=== PATIENT | female | born 1975 ===

== ENCOUNTER 2017-04-25 13:34 | Emergency (ER) | payer OTHER ==
[2017-04-25 13:51] VITALS: RESP 16
[2017-04-25 14:20] LABS: SQUAMOUS EPITHIAL 1 /hpf (0-5); URINE BILIRUBIN NEGATIVE (NEGATIVE); URINE BLOOD 2+ (NEGATIVE); URINE CLARITY Clear (Clear); URINE COLOR Straw (YELLOW); URINE GLUCOSE (UA) NORMAL (Normal); URINE LEUKOCYTE ESTERASE NEG Leu/uL (Negative); URINE NITRATE NEGATIVE (NEGATIVE); URINE PROTEIN NEGATIVE (NEGATIVE); URINE UROBILINOGEN NORMAL mg/dL (0.2-1.0)
[2017-04-25 14:23] LABS: HCG,QUALITATIVE URINE POSITIVE (NEGATIVE)
[2017-04-25 14:27] LABS: BASO # 0.1 K/uL (0.0-0.2); EOS # 0.2 K/uL (0.0-0.7); EOS % 2.4 % (0.0-4.0); LYMPH # 2.2 K/uL (1.0-4.3); LYMPH % 26.4 % (20.0-40.0); MEAN CELL VOLUME 86.8 fL (81.0-99.0); MEAN CORPUSCULAR HGB CONC 34.5 g/dL (33.0-37.0); MEAN PLATELET VOLUME 8.5 fL (7.2-11.7); MONO # 0.5 K/uL (0.0-0.8); MONO % 5.8 % (0.0-10.0); NEUT # 5.3 K/uL (1.8-7.0); NEUT % 64.4 % (50.0-75.0); RBC 4.68 Mil/uL (3.80-5.20); RED CELL DISTRIBUTION WIDTH 13.3 % (11.5-14.5); WHITE BLOOD COUNT 8.3 K/uL (4.8-10.8)
[2017-04-25 14:39] LABS: ALBUMIN 4.1 g/dL (3.5-5.0); ALT/SGPT 31 U/L (9-52); AST/SGOT 22 U/L (14-36); BLOOD UREA NITROGEN 8 mg/dL (7-17); CALCIUM 8.7 mg/dl (8.6-10.4); GFR AFRICAN-AMERICAN > 60; GFR NON-AFRICAN AMERICAN > 60; LIPASE 35 U/L (23-300)
--- NOTE | 2017-04-25 15:39 | US ---
PROCEDURE: OB Pelvic Ultrasound HISTORY: vaginal bleeding COMPARISON: None available. TECHNIQUE: Transabdominal and endovaginal ultrasound examination of the pelvis was performed. FINDINGS: UTERUS: Gestational sac: Single intrauterine gestation. Heart rate: 0 bpm. age (Ultrasound estimated): 5 weeks 5 days 0 weeks 3 days Sera-gestational hemorrhage: None. Date of delivery (Ultrasound estimated) : 12/21/2017 Measures 8.6 x 4.1 x 6.5 cm. Normal in size and appearance. No fibroid or other mass lesion seen. CERVIX: Long and closed. No cervical abnormality seen. RIGHT OVARY: Measures 2.1 x 1.6 x 2 cm. No mass lesion. Normal flow. LEFT OVARY: Measures 2.5 x 1.7 x 2.6 cm. No solid mass. Normal flow. FREE FLUID: None. OTHER FINDINGS: None. IMPRESSION: Abnormal shape of the gestational sac contains low-level echoes. Abnormal shape of the pole. No heart activity appreciated. Cystic structure noted in the gestational sac may root represent enlarged yolk sac versus pathologic cyst measures 0.4 centimeter. The possibility of demise should be considered. Correlation with beta HCG level is suggested.
--- NOTE | 2017-04-25 16:22 | C.PDOC ---
History Of Present Illness 41 y/o female [id number] presents to the ED c/o vaginal bleeding since yesterday. The patient states" There is blood on the tissue but no aentte vaginal bleeding." The patient has no previous ultrasound and LNMP: 02-19-17 The patient denies nausea, vomiting, fever, and cough. Time Seen by Provider: 04/25/17 13:55 Chief Complaint (Nursing): Abdominal Pain History Per: Patient Onset/Duration Of Symptoms: Days Current Symptoms Are (Timing): Still Present Quality Of Discomfort: denies: Cramping Associated Symptoms: denies: Fever, Nausea, Vomiting Past Medical History Reviewed: Historical Data, Nursing Documentation, Vital Signs Vital Signs: Last Vital Signs Temp 98.6 F 04/25/17 16:39 Pulse 69 04/25/17 16:39 Resp 16 04/25/17 16:39 BP 118/79 04/25/17 16:39 Pulse Ox 99 04/25/17 16:39 Surgical History: No Surg Hx Family History: States: No Known Family Hx - Social History Hx Alcohol Use: No Hx Substance Use: No - Immunization History Hx Tetanus Toxoid Vaccination: No Hx Influenza Vaccination: No Hx Pneumococcal Vaccination: No Review Of Systems Except As Marked, All Systems Reviewed And Found Negative. Constitutional: Negative for: Fever Respiratory: Negative for: Cough, Shortness of Breath Gastrointestinal: Negative for: Nausea, Vomiting Physical Exam - Physical Exam Appears: Non-toxic, No Acute Distress Skin: Warm, Dry Head: Atraumatic, Normacephalic Eye(s): bilateral: Normal Inspection Oral Mucosa: Moist Neck: Supple Chest: Symmetrical Cardiovascular: Rhythm Regular Respiratory: Normal Breath Sounds, No Rales, No Rhonchi, No Wheezing Gastrointestinal/Abdominal: Soft, No Tenderness, No Guarding, No Rebound Back: Normal Inspection Pelvic: No Vaginal Bleeding, No Vaginal Discharge Extremity: No Tenderness, Capillary Refill (2<sec.), No Swelling Neurological/Psych: Oriented x3, Normal Speech, Normal Cognition ED Course And Treatment - Laboratory Results Result Diagrams: 04/25/17 14:16 04/25/17 14:16 O2 Sat by Pulse Oximetry: 100 (RA) Progress Note: US Exam is unremarkable. The patient is aferbile. The patient is advised to have a follow up with her PMD for further evaluation. Medical Decision Making Medical Decision Making: IMPRESSION: Abnormal shape of the gestational sac contains low-level echoes. Abnormal shape of the pole. No heart activity appreciated. Cystic structure noted in the gestational sac may root represent enlarged yolk sac versus pathologic cyst measures 0.4 centimeter. The possibility of demise should be considered. Correlation with beta HCG level is suggested. Disposition - Disposition Referrals: [facility]io [facility], [Non-Staff] - Disposition: HOME/ ROUTINE Disposition Time: 15:55 Condition: GOOD Additional Instructions: Thank you for letting us take care of you today. The emergency medical care you received today was directed at your acute symptoms. If you were prescribed any medication, please fill it and take as directed. It may take several days for your symptoms to resolve. Return to the Emergency Department if your symptoms worsen, do not improve, or if you have any other problems. Please contact your doctor or call one of the physicians/clinics you have been referred to that are listed on the Patient Visit Information form that is included in your discharge packet. Bring any paperwork you were given at discharge with you along with any medications you are taking to your follow up visit. Our treatment cannot replace ongoing medical care by a primary care provider (PCP) outside of the emergency department. Thank you for allowing the [facility] team to be part of your care today. Follow up with the emergency room in 2 days for repeat bloodwork and ultrasound. Lulú por dejarnos atenderlo hoy. La atencin mdica de emergencia que recibi hoy estaba dirigida a elaine sntomas agudos. Si le prescribieron algn medicamento, llnelo y tome segn las indicaciones. Elaine sntomas pueden tardar varios grajeda en resolverse. Regrese al Departamento de Emergencia si elaine s ntomas empeoran, no mejoran o si tiene algn otro problema. Comunquese con danielson mdico o llame a yash de los mdicos / clnicas a los que duran sido referido que figura en el formulario de Informacin de visita del paciente que se incluye en danielson paquete de emily. Traiga todos los documentos que recibi al momento del emily junto con los medicamentos que est tomando en danielson visita de seguimiento. Nuestro tratamiento no puede reemplazar la atencin mdica en curso por parte de un proveedor de atencin primaria (PCP) fuera del departamento de emergencias. Lulú por permitir que el equipo de [facility] sea parte de danielson cuidado hoy. River un seguimiento con la xiang de emergencias en 2 grajeda para que se repitan los anlisis de soham y el ultrasonido. Instructions: Threatened Miscarriage (ED), Pelvic Rest (ED) Forms: Gen Discharge Inst Nepali Print Language: THAI - Clinical Impression Clinical Impression: Threatened - Scribe Statement The provider has reviewed the documentation as recorded by the Scribe Obdulia Pettit
[2017-04-25 16:41] VITALS: BP 118/79; PULSE 69; TEMP 98.6
[2017-04-25 18:33] VITALS: O2SAT 100
== END 2017-04-25 16:40 | disposition home or self-care (01) ==
LOC: C.ER 13:34
DX: O20.0 Threatened abortion (principal)

== ENCOUNTER 2017-04-26 05:27 | Emergency (ER) | payer OTHER ==
[2017-04-26 06:47] VITALS: BP 122/76; PULSE 88; RESP 20; TEMP 97.6; O2SAT 100
[2017-04-26] MEDS ORDERED: Oxycodone/Acetaminophen 5/325 mg Tab PO STA (08:03)
[2017-04-26] MEDS ORDERED: Oxycodone/Acetaminophen 5/325 mg Tab ONE (08:07)
--- NOTE | 2017-04-26 08:26 | C.PDOC ---
History Of Present Illness 41-year-old female, presents to the emergency department with complaints of vaginal bleeding for the past two days, that is associated with abdominal cramping. Patient was seen in ED yesterday for similar symptoms, and was evaluated for threatened . Patient returns today for continued bleeding. Denies chest pain, shortness of breath, nausea/vomiting, fevers or chills. No other complaints at this time. Time Seen by Provider: 04/26/17 07:31 Chief Complaint (Nursing): Female Genitourinary History Per: Patient History/Exam Limitations: no limitations Onset/Duration Of Symptoms: Days Current Symptoms Are (Timing): Still Present Severity: Moderate Past Medical History Reviewed: Historical Data, Nursing Documentation, Vital Signs Vital Signs: Last Vital Signs Temp 97.6 F 04/26/17 06:43 Pulse 88 04/26/17 06:43 Resp 20 04/26/17 06:43 BP 122/76 04/26/17 06:43 Pulse Ox 100 04/26/17 15:12 Family History: States: No Known Family Hx - Social History Hx Alcohol Use: No Hx Substance Use: No - Immunization History Hx Tetanus Toxoid Vaccination: No Hx Influenza Vaccination: No Hx Pneumococcal Vaccination: No Review Of Systems Except As Marked, All Systems Reviewed And Found Negative. Constitutional: Negative for: Fever, Chills Cardiovascular: Negative for: Chest Pain Respiratory: Negative for: Shortness of Breath Gastrointestinal: Negative for: Vomiting Genitourinary: Positive for: Vaginal Bleeding, Pelvic Pain Musculoskeletal: Negative for: Back Pain Neurological: Negative for: Weakness, Numbness, Headache, Dizziness Physical Exam - Physical Exam Appears: Non-toxic, No Acute Distress Skin: Warm, Dry, No Rash Head: Atraumatic, Normacephalic Eye(s): bilateral: Normal Inspection, PERRL Nose: Normal Oral Mucosa: Moist Lips: Normal Appearing Neck: Normal ROM Cardiovascular: Rhythm Regular, No Murmur Respiratory: Normal Breath Sounds, No Accessory Muscle Use Gastrointestinal/Abdominal: Soft, No Tenderness Extremity: Normal ROM Neurological/Psych: Oriented x3, Normal Speech ED Course And Treatment O2 Sat by Pulse Oximetry: 100 (on RA) Pulse Ox Interpretation: Normal Medical Decision Making Medical Decision Making: Old records were reviewed. Patient seen in ED yesterday for same complaint. Pt had an ultrasound that revealed no heartbeat, patient was instructed to follow up in ER in two days. Plan: * Percocet * Reassess and Disposition Disposition - Disposition Referrals: [facility] [Outside] Disposition: HOME/ ROUTINE Disposition Time: 08:23 Condition: GOOD Additional Instructions: RETURN IN 24 HOURS FOR REPEAT TESTING. Prescriptions: oxyCODONE/Acetaminophen [Percocet 5/325 mg Tab] 1 tab PO QID PRN #15 tab PRN Reason: Pain Instructions: Threatened Miscarriage (ED) Forms: [employer] (Welsh) - Clinical Impression Clinical Impression: Threatened - Scribe Statement The provider has reviewed the documentation as recorded by the Scribe (Shayan Steinberg) All medical record entries made by the Scribe were at my direction and personally dictated by me. I have reviewed the chart and agree that the record accurately reflects my personal performance of the history, physical exam, medical decision making, and the department course for this patient. I have also personally directed, reviewed, and agree with the discharge instructions and disposition.
== END 2017-04-26 08:41 | disposition home or self-care (01) ==
LOC: C.ER 05:27
DX: O20.0 Threatened abortion (principal); Z3A.00 Weeks of gestation of pregnancy not specified

== ENCOUNTER 2017-04-27 08:27 | Emergency (ER) | payer OTHER ==
[2017-04-27 08:42] VITALS: O2SAT 100
--- NOTE | 2017-04-27 10:18 | C.PDOC ---
History Of Present Illness 41-year-old female, presents to the emergency department with complaints of vaginal bleeding for the past three days that is associated with abdominal cramping. Patient was seen in ED yesterday and two days ago for similar symptoms , and was evaluated for threatened . Patient was asked to return today for repeat beta count. Denies chest pain, shortness of breath, nausea/vomiting, fevers or chills. No other complaints at this time. Time Seen by Provider: 04/27/17 08:35 Chief Complaint (Nursing): Female Genitourinary History Per: Patient History/Exam Limitations: no limitations Onset/Duration Of Symptoms: Days Current Symptoms Are (Timing): Still Present Past Medical History Reviewed: Historical Data, Nursing Documentation, Vital Signs Vital Signs: Last Vital Signs Temp 97.7 F 04/27/17 14:11 Pulse 63 04/27/17 14:11 Resp 20 04/27/17 14:11 BP 105/73 04/27/17 14:11 Pulse Ox 100 04/30/17 12:42 Family History: States: No Known Family Hx - Social History Hx Alcohol Use: No Hx Substance Use: No - Immunization History Hx Tetanus Toxoid Vaccination: No Hx Influenza Vaccination: No Hx Pneumococcal Vaccination: No Review Of Systems Except As Marked, All Systems Reviewed And Found Negative. Constitutional: Negative for: Fever Cardiovascular: Negative for: Chest Pain Respiratory: Negative for: Shortness of Breath Gastrointestinal: Positive for: Abdominal Pain. Negative for: Nausea, Vomiting Genitourinary: Positive for: Vaginal Bleeding Neurological: Negative for: Weakness, Numbness, Headache, Dizziness Physical Exam - Physical Exam Appears: Non-toxic, No Acute Distress Skin: Warm, Dry, No Rash Head: Atraumatic, Normacephalic Eye(s): bilateral: Normal Inspection, PERRL, EOMI Ear(s): Bilateral: Normal Nose: Normal Oral Mucosa: Moist Lips: Normal Appearing Throat: No Erythema, No Exudate Neck: Normal ROM, Supple Chest: Symmetrical, No Ecchymosis, No Subcutaneous Emphysema Cardiovascular: Rhythm Regular, No Friction Rub, No Murmur Respiratory: Normal Breath Sounds, No Accessory Muscle Use Gastrointestinal/Abdominal: Bowel Sounds (active), Soft, No Tenderness Back: No CVA Tenderness Pelvic: Normal External Exam, Vaginal Bleeding, No Cervical Motion Tenderness, No Adnexal Tenderness, Other (Cervical os opened) Extremity: Normal ROM, No Tenderness, No Pedal Edema, No Swelling Neurological/Psych: Oriented x3, Normal Speech, Normal Motor Gait: Steady ED Course And Treatment O2 Sat by Pulse Oximetry: 100 (on RA) Pulse Ox Interpretation: Normal Medical Decision Making Medical Decision Making: Prior Visits Old records were reviewed. Patient seen in ED on 04/25 for same complaint. Pt had an ultrasound that revealed no heartbeat, patient was instructed to follow up in ER in two days. Patient returned to ED yesterday for evaluation of continued bleeding. Patients HCG on 04/25 was [address]49. Plan: * US Transvaginal * Beta HCG * Reassess and Disposition Patients repeat beta is 1576. Pending ultrasound. Findings show an in progress. The case [facility] who states that she has reviewed the ultrasound images, states to give the patient Cytotec 400mg TID for 2 days, and agrees that the patient is safe for discharge. Disposition - Disposition Referrals: [facility] at [facility] [Outside] Disposition: HOME/ ROUTINE Disposition Time: 13:31 Condition: GOOD Additional Instructions: Follow up with the medical doctor within 1-2 days. Return if worsened. Prescriptions: Ibuprofen [Motrin Tab] 800 mg PO TID #20 tab miSOPROStol [Cytotec] 400 mcg PO TID #5 tab Promethazine [Phenergan] 25 mg PO Q6 PRN #15 tab PRN Reason: Nausea/Vomiting Instructions: Spontaneous Miscarriage (ED) Forms: [employer] (Emirati) Print Language: SWEDISH - Clinical Impression Clinical Impression: Spontaneous - Scribe Statement The provider has reviewed the documentation as recorded by the Scribe (Shayan Steinberg) All medical record entries made by the Scribe were at my direction and personally dictated by me. I have reviewed the chart and agree that the record accurately reflects my personal performance of the history, physical exam, medical decision making, and the department course for this patient. I have also personally directed, reviewed, and agree with the discharge instructions and disposition.
[2017-04-27 12:32] VITALS: RESP 20
--- NOTE | 2017-04-27 12:47 | US ---
HISTORY: vag bleed, preg COMPARISON: Comparison is made with the previous trans abdominal ultrasound dated 04/25/2017 TECHNIQUE: Transvaginal ultrasound examination of the pelvis was performed. FINDINGS: UTERUS: Measures 8 x 4.5 x 5.3 cm. The uterus is anteverted heterogeneous in echotexture. There is posterior uterine lesion likely represent fibroid measures 1 x 0.9 x 1.3 centimeter. There is also fundal lesion measures 1 x 0.8 x 1 centimeter. ENDOMETRIUM: Measures 0.9 mm in diameter. The endometrium is heterogeneous. There is a complex hypoechoic area in the mid to lower endometrium measures 0.9 x 0.6 x 0.5 centimeter. There is no evidence of pole or heart activity. Findings suspicious for in progress CERVIX: There is small amount of fluid in the uterine cervix. RIGHT OVARY: Measures 2.4 x 1.3 x 2.1 cm. No solid mass. Normal flow. LEFT OVARY: Measures 2.3 x 1.8 x 2.3 cm. No solid mass. Normal flow. There is 1.1 x 0.6 x 0.9 centimeter cyst in the left ovary. There is also calcification or echogenic focus in the left ovary measures 3 millimeter. FREE FLUID: No significant free fluid noted. OTHER FINDINGS: None. IMPRESSION: Complex low-attenuation structure at the mid to lower portion of the endometrial cavity contains yolk sac. No evidence of pole or heart activity. Findings suspicious for in progress. Small amount of fluid seen in the uterine cervix. Posterior and fundal heterogeneous uterine lesion likely represent fibroids. If clinically warranted follow-up study is suggested.
[2017-04-27 14:12] VITALS: BP 105/73; PULSE 63; TEMP 97.7
== END 2017-04-27 14:11 | disposition home or self-care (01) ==
LOC: C.ER 08:27
DX: O03.9 Complete or unspecified spontaneous abortion without complication (principal)